=== PATIENT | female | born 1965 | race African-American/Black ===

== ENCOUNTER → 2016-03-22 | Outpatient (CLI) | payer BC ==
--- NOTE | 2016-03-22 15:53 | KCIC ---
Bilateral digital screening mammograms with CAD: HISTORY Routine screening. History of bilateral breast reduction in 2015. COMPARISON Comparison is made to previous studies dated 03/21/2015 and 02/17/2014. FINDINGS Breast density category B. The skin and nipples show no abnormalities. No abnormal lymph nodes are seen in the axilla. The breast parenchyma shows scattered fibroglandular density. There are post reduction changes present in the breasts and there continues to be some focally increased parenchymal density posterior centrally in the right breast seen on oblique view which is unchanged. There are no new dominant masses, suspicious calcifications or architectural distortions. IMPRESSION No evidence of malignancy. Recommend routine annual mammographic screening. This study was interpreted with the benefit of Computerized Aided Detection (CAD). Mammography is not 100% sensitive in detecting breast cancer. Therefore, a self breast exam and a clinical breast exam are very important. A negative mammogram does not negate a clinically suspicious finding and should not result in a delay in biopsying a clinically suspicious abnormality. BI-RADS category 2: Benign. This patient's information has been entered into a reminder system for the patient to be notified with the results of this examination and a target date for her next mammograms. Electronically signed by: Deanne Mallory MD (Mar 22, 2016 15:51:54)
== END | disposition home or self-care (01) ==
LOC: KCIC MAMMO 09:44
PROVIDERS: ATTEND Family Medicine
DX: Z12.31 Encounter for screening mammogram for malignant neoplasm of breast (principal)
CPT/HCPCS: G0202; 77067

== ENCOUNTER → 2016-04-26 | Outpatient (CLI) | payer BC ==
--- NOTE | 2016-04-26 09:39 | KCIC ---
PROCEDURE Maxillofacial CT without contrast. HISTORY Chronic sinusitis, right ear pain, infections TECHNIQUE Noncontrast CT imaging was performed of the maxillofacial region, multiplanar reconstruction images submitted. Exposure: One or more of the following individualized dose reduction techniques were utilized for this exam: 1. Automated exposure control. 2. Adjustment of the mA and/or kV according to patient size. 3. Use of iterative reconstruction technique. COMPARISON None FINDINGS There are no air-fluid levels of the paranasal sinuses. There is patchy mild ethmoid air cell mucosal thickening bilaterally. There is negligible maxillary sinus mucosal thickening near floors up to 1-2 millimeters in greatest thickness. There is negligible mucosal thickening of the more medial right frontal sinus up to 1 millimeter greatest thickness. There is some patchy partial opacification of the mastoid air cells bilaterally greater on the right. Ostiomeatal units are patent bilaterally. IMPRESSION 1. There is patchy very minimal ethmoid air cell, maxillary sinus, and right frontal sinus mucosal thickening. There are no air-fluid levels of the paranasal sinuses. 2. There is some patchy nonspecific density of the mastoid air cells bilaterally of uncertain sterility, although mastoid air cells predominantly aerated. Electronically signed by: Floyd Casillas MD (Apr 26, 2016 09:38:18)
== END | disposition home or self-care (01) ==
LOC: KCIC CT 08:55
PROVIDERS: ATTEND Otolaryngology
DX: J32.9 Chronic sinusitis, unspecified (principal)
CPT/HCPCS: 70486

== ENCOUNTER → 2017-09-23 | Outpatient (CLI) | payer BC ==
--- NOTE | 2017-09-23 15:32 | KCIC ---
Bilateral digital screening mammograms: Reason for examination: Routine screening. Comparison is made to previous studies dated back to 06/03/2011. Interpretation was made with the benefit of CAD. The skin and nipples show no abnormalities. No abnormal axillary lymph nodes are seen. The breast parenchyma shows scattered fibroglandular density. (Breast density: Category B.) There appears to be new clustered calcifications located posterior laterally in the right breast approximately 10.5 cm posterior to the nipple at the 8:30 C position. Recommend further evaluation with coned magnification views. There continues to be a small nodule within the posterior superior right breast on oblique view consistent with an intramammary lymph node which is unchanged. There are no new dominant masses or architectural distortions. Impression: New cluster of calcifications located at the 8:30 position of the right breast approximately 10.5 cm posterior to the nipple. Recommend further evaluation with coned magnification views. BI-RADS Category 0: Complete. Needs additional imaging evaluation. "Our facility is accredited by the [employer] Mammography [employer]." This patient's information has been entered into a reminder system for the patient to be notified with the results of her examination and a target date for the next mammogram. Electronically signed by: Afia Mallory MD (09/23/2017 3:28 PM) [id number]
== END | disposition home or self-care (01) ==
LOC: KCIC MAMMO 10:19
PROVIDERS: ATTEND Family Medicine
DX: Z12.31 Encounter for screening mammogram for malignant neoplasm of breast (principal)
CPT/HCPCS: 77067

== ENCOUNTER → 2017-09-26 | Outpatient (CLI) | payer BC ==
--- NOTE | 2017-09-26 13:19 | KCIC ---
Right breast diagnostic digital mammograms: Reason for examination: Calcifications on screening mammogram. Coned compression magnification views of the right breast were obtained with attention to the area of concern at the 8:30 C position of the right breast. A cluster of new calcifications persists at this site and has a suspicious appearance. Malignancy cannot be excluded. Stereotactic biopsy is recommended. IMPRESSION: New clustered calcifications at the 8:30 C position of the right breast. Recommend stereotactic biopsy. BI-RADS Category 4: Suspicious. These findings have been discussed with the patient and the patient's physician, Dr. Valles was notified about these findings on 09/26/2017 at 1:13 PM. "Our facility is accredited by the [employer] Mammography [employer]." This patient's information has been entered into a reminder system for the patient to be notified with the results of her examination and a target date for the next mammogram. Electronically signed by: Afia Mallory MD (09/26/2017 1:15 PM) [facility]
== END | disposition home or self-care (01) ==
LOC: KCIC MAMMO 12:23
PROVIDERS: ATTEND Family Medicine
DX: R92.8 Other abnormal and inconclusive findings on diagnostic imaging of breast (principal); Z98.86 Personal history of breast implant removal
CPT/HCPCS: 77065

== ENCOUNTER → 2017-10-06 | Outpatient (CLI) | payer BC ==
[~2017-10-06] MED LIST: LIDOCAINE 2%/EPI 1:100,000 20 ML VIAL. IJ ONE; LIDOCAINE WITH 8.4% SOD BICARB 3 ML DISP.SYRIN. INJ ONE
--- NOTE | 2017-10-08 10:14 | PATHOLOGY ---
[facility] Accession Number: [id number] . 01 Material submitted: . RIGHT BREAST TISSUE . 01 Clinical history: . Right breast calcifications . 02 Diagnosis: Breast tissue, right breast stereotactic needle biopsies: - Focal scarring, fat necrosis, chronic inflammation, histiocytic reaction, and cholesterol granuloma with associated calcifications. - Fibrocystic changes with the following components: Stromal fibrosis. Duct ectasia. Cystic change. Apocrine metaplasia, focal. [facility]/10/08/2017 . 02 Comment: The localized area of calcifications corresponds to an area of fat necrosis with associated scarring, chronic inflammation, histiocytic reaction, and cholesterol granuloma. There is no evidence of malignancy. . (JPM:mml; 10/07/17) . 02 Electronically signed: . Erasmo Phillips MD, Pathologist NPI- [id number] . 01 Gross description: . Received in formalin labeled "Headd, Sujata, right breast," and additionally labeled on the requisition as "calcs in cage," are multiple needle cores of yellow-olguin fibrofatty tissue measuring 3.1 x 3.9 x 0.8 cm in aggregate dimensions. Also received in a plastic cassette are multiple cores of yellow-olguin fibrofatty tissue measuring 2.3 x 1.6 x 0.8 cm in aggregate dimensions. The tissue in the cassette is submitted in its entirety in cassette A3 and the remaining tissue is submitted entirely in cassette A1 and A2. The cold ischemic time is 12 minutes. The total formalin fixation time is 10 hours and 37 minutes. (TSD; 10/06/2017) TOB/TOB . 02 Pathologist provided ICD-10: N60.11, N60.31, N60.41, N60.81, N61.0 . 02 CPT . 259067 Performed at: 01 [facility] [address], [place], [place] [id number] MD Karson Sears MD Phone: [phone] Performed at: 02 [facility] [address], [place] [id number] MD Erasmo Phillips MD Phone: [phone]
--- NOTE | 2017-10-09 13:02 | RAD ---
Stereotactic right breast biopsy, 10/06/2017: History: Suspicious microcalcifications Outside studies demonstrated a cluster of suspicious microcalcifications in the inferolateral aspect of the right breast. Under local anesthesia, aseptic conditions and sonographic guidance the vacuum-assisted biopsy instrument was passed into this region via a lateral approach. Multiple 9 gauge vacuum-assisted core samples were obtained. Specimen mammography demonstrated the targeted microcalcifications within the specimens. A biopsy marker was deposited at the biopsy site. The biopsy instrument was then removed and hemostasis obtained. Two-view postprocedural digital mammograms were then obtained on a separate mammographic unit to document position of the biopsy marker. There is a moderate-sized hematoma at the biopsy site. The patient tolerated the procedure well and left the department in good condition. The subsequent pathology report indicated the presence of fat necrosis and scarring with associated calcifications. Fibrocystic changes are also noted. This is considered to be a concordant finding.
== END | disposition home or self-care (01) ==
LOC: MAMMO 15:31
PROVIDERS: ATTEND Family Medicine
DX: N60.31 Fibrosclerosis of right breast (principal); N60.41 Mammary duct ectasia of right breast; N60.81 Other benign mammary dysplasias of right breast; Z88.0 Allergy status to penicillin; Z88.5 Allergy status to narcotic agent; Z88.1 Allergy status to other antibiotic agents
CPT/HCPCS: 19083; 77065; 88305; C1713; J3490; 19085; 77022

== ENCOUNTER → 2020-06-09 | Outpatient (CLI) | payer BC, OTHER ==
--- NOTE | 2020-06-09 16:52 | KCIC ---
BILATERAL SCREENING MAMMOGRAM History: Routine screening. Comparison: Bilateral mammogram September 23, 2017. Technique: Routine digital mammogram views were obtained. Findings: Breast Tissue Density B : There are scattered areas of fibroglandular density. Biopsy clip of the right breast 8:30 C position. There are new dystrophic calcifications just medial and inferior. Arterial calcifications are redemonstrated bilaterally. There is a new benign calcifica tion of the anterior left breast. There are no dominant masses, suspicious microcalcifications or architectural distortion. IMPRESSION: No mammographic evidence of malignancy. Recommend routine screening. BI-RADS category 2: Benign findings. The images were reviewed with computer aided detection. Patient information is entered into the reminder system with a target due date for the next screening mammogram. Mammography is the most sensitive method for finding small breast cancers, but it does not detect the m all and is not a substitute for careful clinical examination. A negative mammogram does not negate a clinically suspicious finding and should not result in delay in biopsying a clinically suspicious a bnormality. "Our facility is accredited by the [employer] Mammography [employer]." Electronically signed by: Bismark Jimenez MD (06/09/2020 4:50 PM) [facility]
== END ==
LOC: KCIC MAMMO 12:55
PROVIDERS: ATTEND Family Medicine
DX: Z12.31 Encounter for screening mammogram for malignant neoplasm of breast (principal)
CPT/HCPCS: 77067